=== PATIENT | female | born 1945 ===

== ENCOUNTER 2020-05-15 21:33 | Emergency (ER) | payer MEDICARE, OTHER ==
[~2020-05-15] VITALS: Ht 157.5 cm; Wt 81.0 kg
[~2020-05-15 21:33] MED LIST: ACCUPRIL5 MG; ADULT ASPIRIN L81 MG PO; FISH OIL1000 MG PO; GLUCOSAMINE500 M4 PO; LABETALOL HCL100 MG PO; LOSARTAN POTAS100 MG PO; OXYCODONE HCL5 MG PO; PHENERGAN SUP12.5 MG PO; PLAVIX75 MG PO
[2020-05-15 22:27] LABS: HEMATOCRIT 39.3 % (37.0-47.0); HEMOGLOBIN 12.6 g/dl (12.0-16.0); IMMATURE GRANULOCYTES 0.3 % (0.0-5.0); MEAN CELL VOLUME 93.1 fL CALC (80.0-100.0); MEAN CORPUSCULAR HGB 29.9 pG CALC (26.0-32.0); MEAN CORPUSCULAR HGB CONC 32.1 g/dL CAL (32.0-36.0); NEUT# 3.6 thou/uL (2.00-7.15); RED BLOOD COUNT 4.22 mill/uL (4.20-5.60); RED CELL DISTRI WIDTH 13.2 % (11.5-15.5)
[2020-05-15 22:46] LABS: ALKALINE PHOSPHATASE 128 u/l (38-126); AMYLASE 135 u/l (30-110); ANION GAP 9 (6-22 (CALC)); BILIRUBIN, TOTAL 0.4 mg/dL (0.0-1.4); BUN 25 mg/dL (8-23); BUN/CREATININE RATIO 28 (12-20 (CALC)); CARBON DIOXIDE 28 mmol/l (22-30); CHLORIDE 103 mmol/l (95-108); CREATININE 0.9 mg/dL (0.5-1.0); ETHYL ALCOHOL 0 mg/dl (0-30); GFR > 60 ML/MIN (>=60 (CALC)); GFR FOR AFR.AMER. > 60 ML/MIN (>=60 (CALC)); LIPASE 168 u/l (23-300); MAGNESIUM 1.5 mg/dL (1.6-2.3); POTASSIUM 4.2 mmol/l (3.5-5.1); SGOT/AST 24 u/l (9-36); SODIUM 137 mmol/l (137-146); TOTAL PROTEIN 7.3 g/dL (6.3-8.2)
[2020-05-15 22:53] LABS: ACT PARTIAL THROMBO TIME 23.7 SECONDS (20.0-32.5); PROTHROMBIN TIME 9.6 SECONDS (9.0-12.5)
[2020-05-15] MEDS ORDERED: METOPROL TAR25 MG PO (23:15)
[2020-05-15] MEDS ORDERED: ELIQUIS5 MG PO (23:15)
[2020-05-15] MEDS ORDERED: HYDROCHLOROT25 MG PO (23:16)
[2020-05-15] MEDS ORDERED: HYZAAR1 TAB PO (23:18)
[2020-05-15 23:50] VITALS: BP 148/65
[2020-05-15] MEDS ORDERED: MECLIZINE25 MG PO (23:55)
[2020-05-15] MEDS ORDERED: ZOFRAN4 MG/TAB PO (23:55)
== END 2020-05-16 00:10 | disposition home or self-care (01) ==
LOC: ED 21:33
DX: R42 Dizziness and giddiness (principal); I10 Essential (primary) hypertension
CPT/HCPCS: Q9967